=== PATIENT | female | born 1985 | race Caucasian/White ===

== ENCOUNTER 2018-10-02 06:11 | Observation (INO) | payer OTHER ==
[2018-10-02] VITALS (10 sets, daily range): BP systolic 106–125; BP diastolic 58–74
[~2018-10-02] VITALS: Ht 160 cm; Wt 92.1 kg
[2018-10-02] MEDS ORDERED: BISA-42 PO (06:21)
[2018-10-02] MEDS ORDERED: LEVO75TA5 PO (06:21)
[2018-10-02] MEDS ORDERED: MAGN400O7 PO (06:21)
[2018-10-02] MEDS ORDERED: DOCU-109 PO (06:21)
[2018-10-02] MEDS ORDERED: PROM25TA10 PO (06:21)
[2018-10-02] MEDS ORDERED: CLINDAMYCIN 900MG PREMIX 50 ML IV ONE (06:27)
[2018-10-02] MEDS ORDERED: AZTREONAM IV Push 1 GM VIAL. IVP PRN (06:30)
[2018-10-02] MEDS ORDERED: IV RINGERS,LACTATED 1000ML 1,000 ML IV SCH ×2 (06:33→06:45)
[2018-10-02 06:45] LABS: U PREG PATIENT NEGATIVE (NEG)
[2018-10-02] MEDS ORDERED: fentaNYL PF VIAL 100 MCG/2 ML VIAL IV PRN (06:45)
[2018-10-02] MEDS ORDERED: MIDAZOLAM HCL/PF 2 MG/2 ML VIAL. IV PRN (06:45)
[2018-10-02] MEDS ORDERED: LIDOCAINE 1% PF 2 ML VIAL. ID PRN (06:45)
[2018-10-02 07:02] LABS: BASO % 1 % (0-3); EOS # 0.1 x10^3/uL (0.0-0.7); EOS % 1 % (0-3); HEMOGLOBIN 12.8 g/dL (12.0-15.5); LYMPH # 2.9 x10^3/uL (1.0-4.8); LYMPH % 33 % (24-48); MEAN CORPUSCULAR HEMOGLOBIN 32 pg (25-35); MEAN CORPUSCULAR HGB CONC 35 g/dL (31-37); MEAN CORPUSCULAR VOLUME 93 fL (79-100); MONO # 0.7 x10^3/uL (0.0-1.1); MONO % 9 % (0-9); NEUT # 4.9 x10^3uL (1.8-7.7); NEUT % 56 % (31-73); PLATELET COUNT 250 x10^3/uL (140-400); RED BLOOD COUNT 3.97 x10^6/uL (3.50-5.40); RED CELL DISTRIBUTION WIDTH 12.3 % (11.5-14.5); WHITE BLOOD COUNT 8.6 x10^3/uL (4.0-11.0)
[2018-10-02] MEDS ORDERED: METHYLENE BLUE 1% 10 ML VIAL. ONE (07:19)
[2018-10-02] MEDS ORDERED: LIDOCAINE 1%/EPI 1:100,000 20 ML VIAL. ONE (07:19)
[2018-10-02] MEDS ORDERED: ESTROGENS, CONJ VAGINAL CREAM 30GM TUBE. ONE (07:29)
[2018-10-02] MEDS ORDERED: MIDAZOLAM HCL/PF 2 MG/2 ML VIAL. ONE (07:38)
[2018-10-02] MEDS ORDERED: DEXAMETHASONE SOD PHOS 20 MG/5 ML VIAL. ONE (07:38)
[2018-10-02] MEDS ORDERED: ROCURONIUM 50 MG/5 ML VIAL. ONE (07:38)
[2018-10-02] MEDS ORDERED: ONDANSETRON PF 4 MG/2 ML VIAL. ONE ×2 (07:38→09:09)
[2018-10-02] MEDS ORDERED: LIDOCAINE 2% PF Vial for OR 5 ML VIAL. ONE (07:38)
[2018-10-02] MEDS ORDERED: fentaNYL PF VIAL 250 MCG/5 ML VIAL ONE (07:38)
[2018-10-02] MEDS ORDERED: PROPOFOL 20 ML IV ONE (07:38)
[2018-10-02] MEDS ORDERED: NEOSTIGMINE METHYLSULFATE 5 MG/5 ML SYRINGE. ONE (08:55)
[2018-10-02] MEDS ORDERED: GLYCOPYRROLATE 1 MG/5 ML VIAL. ONE (08:55)
[2018-10-02] MEDS ORDERED: SEVOFLURANE 61 TO 120 MINUTES. IH ONE (08:57)
[2018-10-02] MEDS ORDERED: KETOROLAC 30 MG/ML INJ FOR OR. INJ ONE (09:01)
--- NOTE | 2018-10-02 09:03 | PDOC ---
BRIEF OPERATIVE NOTE Date: Oct 02, 2018 Pre-Op Diagnosis 1. AUB 2. Cystocele Post-Op Diagnosis Same Procedure Performed TVH and Anterior Colporrhaphy Surgeon Dr. Newton Anesthesia Type: General Blood Loss 150 ml Specimens Obtained cervix, uterus Findings enlarged uterus; nml fallopian tubes and ovaries rufino.; cystocele stage 3 Complications none Operative Note see dictation JANAK NEWTON Jr, MD Oct 02, 2018 09:03
[2018-10-02] MEDS ORDERED: PROCHLORPERAZINE 10 MG/2 ML VIAL. ONE (09:04)
[2018-10-02] MEDS ORDERED: fentaNYL PF VIAL 100 MCG/2 ML VIAL ONE (09:05)
[2018-10-02] MEDS ORDERED: CALCIUM CARBONATE 500 MG TAB.CHEW PO PRN (09:15)
[2018-10-02] MEDS ORDERED: DEXTROSE 50% 25 GM / 50ML DISP.SYRIN. IV PRN (09:15)
[2018-10-02] MEDS ORDERED: 0.9 % SODIUM CHLORIDE 10 ML DISP.SYRIN. IV PRN (09:15)
[2018-10-02] MEDS ORDERED: PROCHLORPERAZINE 10 MG/2 ML VIAL. IV PRN (09:15)
[2018-10-02] MEDS ORDERED: ZOLPIDEM 5 MG TABLET. PO PRN (09:15)
[2018-10-02] MEDS ORDERED: diphenhydrAMINE HCL 25 MG CAPSULE PO PRN (09:15)
[2018-10-02] MEDS ORDERED: ONDANSETRON PF 4 MG/2 ML VIAL. IV PRN (09:15)
[2018-10-02] MEDS ORDERED: KETOROLAC 30 MG/ML VIAL. IV PRN (09:15)
[2018-10-02] MEDS: fentaNYL PF VIAL 100 MCG/2 ML VIAL IV PRN ×2 (09:28→09:42)
--- NOTE | 2018-10-02 09:29 | OP ---
DATE OF SURGERY: PREOPERATIVE DIAGNOSES: 1. Abnormal uterine bleeding. 2. Cystocele. POSTOPERATIVE DIAGNOSES: 1. Abnormal uterine bleeding. 2. Cystocele. PROCEDURE: 1. TVH. 2. Anterior colporrhaphy. SURGEON: Janak Newton MD ANESTHESIA: GETA. ESTIMATED BLOOD LOSS: 150 mL. COMPLICATIONS: None. FINDINGS: Enlarged uterus, normal fallopian tubes and ovaries bilaterally. Cystocele stage 3. SUMMARY: A 33-year-old, nonresponsive to medical treatment for abnormal uterine bleeding. The patient also had cystocele stage 3 prolapse. The patient was counseled on the risks, benefits and expectations of transvaginal hysterectomy and anterior colporrhaphy and voiced clear understanding to proceed. DESCRIPTION OF PROCEDURE: The patient was taken to surgery suite and placed in dorsal lithotomy position. She was prepped with Betadine solution and draped in a sterile fashion. After adequate anesthesia, weighted speculum and curved [place] placed vaginally and anterior lip and posterior lip of the cervix grasped with Homer clamps. 1% lidocaine with epinephrine was injected in a circumferential manner. Bovie cautery was utilized to circumscribe the cervix. The vaginal mucosa was dissected away from the lower uterine segment using a moist Ray-Luisa. The parametrial tissue and cardinal ligaments were clamped bilaterally, cut and suture ligated with 2-0 Vicryl suture. Posterior cul-de-sac was entered sharply using curved Ludwig scissors. The uterosacral ligaments were clamped bilaterally, cut, and suture ligated. Anterior colpotomy was then performed using blunt dissection with moist Ray-Luisa. Curved Winston was reapproximated, uteroovarian pedicles were clamped bilaterally, cut, and suture ligated. The uterus was then retroverted. The round ligament was clamped bilaterally, cut, and suture ligated. The uterus and cervix were then removed in their entirety. The pedicles were all hemostatic. A modified De La Torre's culdoplasty was performed incorporating the uterosacral ligaments bilaterally. The remainder of the vaginal cuff was reapproximated using 2-0 Vicryl suture in [id number] manner. An Allis clamp was placed 2 cm below the urethral orifice, second Allis clamp was placed 4 cm below the first Allis clamp at the midline of the anterior vaginal wall. 1% lidocaine with epinephrine was then injected between the 2 Allis clamps. Scalpel was utilized to make a vertical incision between 2 Allis clamps. The anterior vaginal wall mucosa was dissected away from the pubovesical fascia using sharp dissection with Metzenbaum scissors along with blunt dissection using moist Ray-Luisa. The pubovesical fascia was reapproximated using 2-0 Vicryl suture in an interrupted fashion. The excess anterior vaginal wall mucosa was excised using Metzenbaum scissors. The remaining anterior vaginal wall mucosa was reapproximated using 2-0 Vicryl suture in [id number] manner. Duarte catheter was then placed with elicited clear yellow urine. Moist vaginal packing was placed. The patient tolerated the procedure well and was taken to recovery room in stable condition. Sponge and needle count correct x 3. JANAK NEWTON MD DR: RICHI/maldonado JOB#: [id number] / [id number]
[2018-10-02] MEDS: oxyCODONE/APAP 5/325 1 TAB TABLET PO PRN ×3 (10:38→20:44)
[2018-10-02] MEDS: SIMETHICONE 80 MG TAB.CHEW PO PRN ×2 (14:00→17:40)
[2018-10-02] MEDS: GABAPENTIN 300 MG CAPSULE. PO SCH ×2 (14:01→20:44)
[2018-10-03] MEDS: oxyCODONE/APAP 5/325 1 TAB TABLET PO PRN ×5 (02:22→21:56)
[2018-10-03] MEDS: GABAPENTIN 300 MG CAPSULE. PO SCH ×3 (06:19→21:55)
[2018-10-03] MEDS ORDERED: CLINDAMYCIN 900MG PREMIX 50 ML IV PRN (06:30)
[2018-10-03 06:53] VITALS: BP 96/67
[2018-10-03 07:04] LABS: BASO # 0.1 x10^3/uL (0.0-0.2); BASO % 1 % (0-3); EOS % 0 % (0-3); HEMATOCRIT 31.7 % (36.0-47.0); HEMOGLOBIN 11.1 g/dL (12.0-15.5); LYMPH # 3.1 x10^3/uL (1.0-4.8); LYMPH % 29 % (24-48); MEAN CORPUSCULAR HEMOGLOBIN 33 pg (25-35); MEAN CORPUSCULAR HGB CONC 35 g/dL (31-37); MEAN CORPUSCULAR VOLUME 93 fL (79-100); MONO # 0.9 x10^3/uL (0.0-1.1); MONO % 8 % (0-9); NEUT # 6.5 x10^3uL (1.8-7.7); NEUT % 62 % (31-73); PLATELET COUNT 232 x10^3/uL (140-400); RED BLOOD COUNT 3.41 x10^6/uL (3.50-5.40); RED CELL DISTRIBUTION WIDTH 12.5 % (11.5-14.5); WHITE BLOOD COUNT 10.5 x10^3/uL (4.0-11.0)
[2018-10-03] MEDS ORDERED: MAGNESIUM HYDROXIDE 2,400 MG/30 ML ORAL.SUSP. PO PRN (08:15)
[2018-10-03] MEDS: DOCUSATE SODIUM 100 MG CAPSULE. PO PRN (09:30)
[2018-10-03] MEDS: LEVOTHYROXINE 75 MCG TABLET PO SCH (09:31)
[2018-10-03 11:20] VITALS: BP 106/65
[2018-10-03] MEDS: SIMETHICONE 80 MG TAB.CHEW PO PRN (11:51)
[2018-10-03] MEDS: BISACODYL 10 MG SUPP.RECT. PR PRN (11:51)
--- NOTE | 2018-10-03 12:05 | PDOC ---
SURGICAL PROGRESS NOTE Subjective Pt. feeling well. She reports lower abd cramping. Vital Signs Vital Signs Date Time Temp Pulse Resp B/P (MAP) Pulse Ox O2 Delivery O2 Flow Rate FiO2 10/03/18 06:53 97.6 101 16 96/67 (77) 97.6 10/02/18 23:13 95 Room Air 10/02/18 09:04 15 I&O Intake and Output 10/03/18 07:00 Intake Total 2550 ml Output Total 4400 ml Balance -1850 ml Intake Oral 1500 ml IV Total 1050 ml Output Urine Total 4250 ml Estimated Blood Loss 150 ml PATIENT HAS A BOURGEOIS: No General: Alert, Oriented X3, Cooperative HEENT: Atraumatic Lungs: Clear to auscultation Heart: Regular rate Abdomen: Normal bowel sounds, Soft, No masses Psych/Mental Status: Mental status NL Labs Laboratory Tests Test 10/02/18 06:20 10/02/18 06:30 10/03/18 06:40 Urine Test Negative (NEG) White Blood Count 8.6 x10^3/uL (4.0-11.0) 10.5 x10^3/uL (4.0-11.0) Red Blood Count 3.97 x10^6/uL (3.50-5.40) 3.41 x10^6/uL (3.50-5.40) Hemoglobin 12.8 g/dL (12.0-15.5) 11.1 g/dL (12.0-15.5) Hematocrit 37.0 % (36.0-47.0) 31.7 % (36.0-47.0) Mean Corpuscular Volume 93 fL (79-100) 93 fL (79-100) Mean Corpuscular Hemoglobin 32 pg (25-35) 33 pg (25-35) Mean Corpuscular Hemoglobin Concent 35 g/dL (31-37) 35 g/dL (31-37) Red Cell Distribution Width 12.3 % (11.5-14.5) 12.5 % (11.5-14.5) Platelet Count 250 x10^3/uL (140-400) 232 x10^3/uL (140-400) Neutrophils (%) (Auto) 56 % (31-73) 62 % (31-73) Lymphocytes (%) (Auto) 33 % (24-48) 29 % (24-48) Monocytes (%) (Auto) 9 % (0-9) 8 % (0-9) Eosinophils (%) (Auto) 1 % (0-3) 0 % (0-3) Basophils (%) (Auto) 1 % (0-3) 1 % (0-3) Neutrophils # (Auto) 4.9 x10^3uL (1.8-7.7) 6.5 x10^3uL (1.8-7.7) Lymphocytes # (Auto) 2.9 x10^3/uL (1.0-4.8) 3.1 x10^3/uL (1.0-4.8) Monocytes # (Auto) 0.7 x10^3/uL (0.0-1.1) 0.9 x10^3/uL (0.0-1.1) Eosinophils # (Auto) 0.1 x10^3/uL (0.0-0.7) 0.0 x10^3/uL (0.0-0.7) Basophils # (Auto) 0.0 x10^3/uL (0.0-0.2) 0.1 x10^3/uL (0.0-0.2) Laboratory Tests Test 10/03/18 06:40 White Blood Count 10.5 x10^3/uL (4.0-11.0) Red Blood Count 3.41 x10^6/uL (3.50-5.40) Hemoglobin 11.1 g/dL (12.0-15.5) Hematocrit 31.7 % (36.0-47.0) Mean Corpuscular Volume 93 fL (79-100) Mean Corpuscular Hemoglobin 33 pg (25-35) Mean Corpuscular Hemoglobin Concent 35 g/dL (31-37) Red Cell Distribution Width 12.5 % (11.5-14.5) Platelet Count 232 x10^3/uL (140-400) Neutrophils (%) (Auto) 62 % (31-73) Lymphocytes (%) (Auto) 29 % (24-48) Monocytes (%) (Auto) 8 % (0-9) Eosinophils (%) (Auto) 0 % (0-3) Basophils (%) (Auto) 1 % (0-3) Neutrophils # (Auto) 6.5 x10^3uL (1.8-7.7) Lymphocytes # (Auto) 3.1 x10^3/uL (1.0-4.8) Monocytes # (Auto) 0.9 x10^3/uL (0.0-1.1) Eosinophils # (Auto) 0.0 x10^3/uL (0.0-0.7) Basophils # (Auto) 0.1 x10^3/uL (0.0-0.2) Assessment/Plan A: POD#1 s/p TVH and Anterior Repair P: D/c home. F/u in 2 weeks. JANAK ANN Jr, MD Oct 03, 2018 12:05
--- NOTE | 2018-10-03 12:09 | DISCH ---
DISCHARGE INSTRUCTIONS Condition on Discharge Condition on Discharge: Stable Activity After Discharge Activity Instructions for Disc: Activity as tolerated Lifting Instructions after Dis: Do not lift >10 pounds (for 6 weeks) Exercise Instruction after Dis: Progress as tolerated (no standing for more than 2 consecutive hours x 2 weeks) Driving Instructions after Dis: No driving for 2 weeks Weight Bearing Status after Di: Non weight bearing Diet after Discharge Diet after Discharge: Regular Contacting the DR. after DC Call your doctor for: Concerns you may have Follow-Up Follow up with: Dr. Newton in 2 weeks. Pt. to have extra mattress pad for next 8 weeks. JANAK NEWTON Jr, MD Oct 03, 2018 12:09
[2018-10-03] MEDS ORDERED: GABA300C18 PO (12:16)
[2018-10-03] MEDS ORDERED: IBUP-1060 PO (12:16)
[2018-10-03 16:57] VITALS: BP 104/66
[2018-10-03] MEDS: BISACODYL 5 MG TABLET.DR. PO PRN (17:44)
[2018-10-03 23:01] VITALS: BP 126/85
[2018-10-04] MEDS: oxyCODONE/APAP 5/325 1 TAB TABLET PO PRN ×4 (03:01→17:02)
[2018-10-04] MEDS: LEVOTHYROXINE 75 MCG TABLET PO SCH (06:04)
[2018-10-04] MEDS: BISACODYL 5 MG TABLET.DR. PO PRN (06:04)
[2018-10-04] MEDS: BISACODYL 10 MG SUPP.RECT. PR PRN (06:04)
[2018-10-04] MEDS: GABAPENTIN 300 MG CAPSULE. PO SCH ×2 (06:04→14:16)
[2018-10-04 06:25] VITALS: BP 120/72
[2018-10-04] MEDS: DOCUSATE SODIUM 100 MG CAPSULE. PO PRN (08:23)
[2018-10-04 10:27] VITALS: BP 105/61
[2018-10-04 16:10] VITALS: BP 122/73
--- NOTE | 2018-10-04 19:05 | DS ---
DATE OF DISCHARGE: 10/04/2018 ADMISSION DIAGNOSES: Abnormal uterine bleeding, cystocele. DISCHARGE DIAGNOSES: Abnormal uterine bleeding, cystocele. PROCEDURE: Total vaginal hysterectomy with anterior colporrhaphy. HOSPITAL COURSE: The patient's hospital course was uneventful, postop day #1, she was tolerating regular diet, ambulating in the dawson without assistance, was having some pain control issues, so she was kept another night. Her preop H and H was 12.8 and 37.0. Postop H and H was 11.1 and 31.7. The patient remained afebrile with a T-max of 99. The patient was discharged home in stable condition. Routine discharge instructions were given. The patient was discharged home on p.o. pain medicines by Dr. Newton. She is to follow up with him at a time they agreed upon. RONNIE MALLORY MD DR: JIM/maldonado JOB#: [id number] / [id number]
--- NOTE | 2018-10-06 18:07 | PATHOLOGY ---
[facility] Accession Number: [id number] . 01 Material submitted: . CERVIX, UTERUS . 01 Clinical history: . Abnormal uterine bleeding, cystocele. . 02 Diagnosis: Uterus, hysterectomy: - Adenomyosis, uterine corpus, subbasal, focal. - Chronic cervicitis with focal squamous metaplasia. - Few small nabothian cysts, cervix. - Interval/early secretory endometrium. 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 02 Comment: There is no evidence of hyperplasia or malignancy. 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 02 Electronically signed: . Zhen Alvarez MD, Pathologist NPI- [id number] . 01 Gross description: . Received in formalin labeled "[place], [place], cervix, uterus" is a hysterectomy specimen consisting of a uterus without attached fallopian tubes or attached ovaries. The uterus weighs 108 g and measures 9.2 cm from fundus to cervix, 5.4 cm from cornu to cornu, and 4.3 cm from anterior to posterior. The serosa is pink castro and smooth. The cervical os is slitlike and measures 1.1 cm, and the ectocervix is pink-castro and glistening. The cervix is probed patent and the uterus is opened to reveal a 3.5 x 2.2 cm endometrial cavity and a 2.5 x 1.3 cm endocervical canal. The average endometrial thickness measures 0.5 cm and the average myometrial thickness measures 2.1 cm. The uterus is serially sectioned to reveal no leiomyomata. Member Services Coordinator sections are submitted as follows: A1 12:00 cervix A2 6:00 cervix A3 anterior endomyometrium A4 posterior endomyometrium ([facility] [place]; 10/02/2018) SYC/SYC . 02 Pathologist provided ICD-10: N72, N80.0, N93.9 . 02 CPT . 792723 Specimen Comment: A courtesy copy of this report has been sent to Specimen Comment: [phone]. Specimen Comment: Report sent to [facility]formed at: [facility] [address], [place], [place] [id number] MD Dre Dunn MD Phone: [phone] Performed at: 02 [facility] [address], [place] [id number] MD Zhen Alvarez MD Phone: [phone]
== END 2018-10-04 17:07 ==
LOC: SURG 06:11 → EEVIPCON 09:03 → 3 NORTH 09:03
PROVIDERS: ADMIT Obstetrics & Gynecology; ATTEND Obstetrics & Gynecology
DX: N93.9 Abnormal uterine and vaginal bleeding, unspecified (principal); N81.10 Cystocele, unspecified; N85.2 Hypertrophy of uterus
CPT/HCPCS: 36415; 58260; 81025; 85025; 86850; 86900; 86901; 88307; 90471; 90756; 96374; A7015; G0378; G0379; J0780; J1100; J1885; J2001; J2250; J2405; J2704; J2710; J3010; J3490; J7120; Q9968; Q2035